=== PATIENT | female | born 1990 | race Caucasian/White ===

== ENCOUNTER 2020-08-08 16:00 | Inpatient (IN) | payer BC ==
[2020-08-08 11:13] VITALS: BMI 41.5
[2020-08-13] MEDS ORDERED: Bupivacaine 0.25% HCL 30 ML VIAL ONE (06:52)
[2020-08-13] MEDS ORDERED: Lidocaine 2% w/Epinephrine 1:200K 20 ML VIAL ONE (06:52)
[2020-08-13] MEDS ORDERED: Heparin 5,000 UNITS/ML VIAL ONE (06:55)
[2020-08-13] MEDS ORDERED: SUGAMMADEX SODIUM 200 MG/2 ML VIAL ONE (06:56)
[2020-08-13] MEDS ORDERED: Fentanyl 250 MCG/5 ML VIAL ONE (06:56)
[2020-08-13] MEDS ORDERED: PROPOFOL 20 ML ONE (06:56)
[2020-08-13] MEDS ORDERED: Lidocaine 1% w/Epinephrine 1:100K 20 ML VIAL ONE (06:58)
[2020-08-13] MEDS ORDERED: Midazolam HCl 2 mg/2 ml Vial ONE (07:24)
[2020-08-13] MEDS ORDERED: SUGAMMADEX SODIUM 500 MG/5 ML VIAL ONE (07:28)
--- NOTE | 2020-08-13 07:47 | HP ---
CHIEF COMPLAINT: Morbid obesity. HISTORY OF PRESENT ILLNESS: The patient is a 29-year-old female, who has been overweight for many years, attempted multiple weight loss programs without success. She is here for sleeve gastrectomy. PAST MEDICAL HISTORY: Significant for morbid obesity. PAST SURGICAL HISTORY: She has had a bunionectomy and a tonsillectomy. MEDICATIONS: 1. Benadryl. 2. Jade-Corning. 3. Depo-Medrol. ALLERGIES: NO KNOWN DRUG ALLERGIES. FAMILY HISTORY: Mother has cancer. SOCIAL HISTORY: No tobacco. Occasional alcohol. PHYSICAL EXAMINATION: VITAL SIGNS: Height 69, weight 291, body mass index 42.9, temperature is 98.4. GENERAL: Well-developed, well-nourished female, in no apparent distress. Good hair growth. No alopecia. HEENT: Pupils are equal, round, and reactive. Extraocular motor intact. Pharynx clear. Good dentition. NECK: Supple. No thyroid masses. No carotid bruits. LUNGS: Clear. HEART: Regular rate and rhythm. BREASTS: There are no palpable breast masses. LYMPHATIC: No lymphadenopathy. ABDOMEN: Soft, nondistended, nontender. No masses or hernias. BACK: No spinal tenderness or deformity. EXTREMITIES: Good pulses. No pedal edema. ASSESSMENT: Morbid obesity. PLAN: Laparoscopic sleeve gastrectomy. CONSENT: I have discussed planned procedure as well as risk of bleeding, infection, injury to the esophagus, bleeding loops of bowel, need to open, leakage from staple line. She understands and gives informed consent. Job ID: [id number]
[2020-08-13] MEDS ORDERED: Promethazine HCl 25 MG/ML VIAL SLOW IVP PRN (08:23)
[2020-08-13] MEDS ORDERED: Promethazine HCl 25 MG/ML VIAL IM PRN ×2 (08:23→09:04)
[2020-08-13] MEDS ORDERED: Meperidine HCl/PF 25 MG/ML VIAL SLOW IVP PRN (08:23)
[2020-08-13] MEDS ORDERED: Ondansetron HCl/PF 4 MG/2 ML Vial IVP PRN (08:23)
[2020-08-13] MEDS ORDERED: Dextrose 50% Abboject 50 ML SYRINGE SLOW IVP PRN (08:44)
[2020-08-13] MEDS ORDERED: hydrALAZINE 20 MG/ML VIAL SLOW IVP PRN (08:44)
[2020-08-13] MEDS ORDERED: diphenhydrAMINE 50 MG/ML VIAL IVP PRN ×2 (08:44→09:04)
[2020-08-13] MEDS ORDERED: Hydrocodone-Acetamin 15 ML UDCUP PO PRN (08:44)
[2020-08-13] MEDS ORDERED: Dextrose 5% in Water 1,000 ML IV PRN (08:44)
[2020-08-13] MEDS ORDERED: D5 1/2 NS w/20 mEq KCL 1,000 ML ONE (08:51)
[2020-08-13] MEDS ORDERED: Sodium Chloride 0.9% (PF) 10 ML VIAL FS PRN (09:00)
[2020-08-13] MEDS ORDERED: Promethazine HCl 25 MG/ML VIAL ONE (09:00)
--- NOTE | 2020-08-13 09:03 | OP ---
DATE OF PROCEDURE: 08/13/2020 PREOPERATIVE DIAGNOSIS: Morbid obesity. PROCEDURE PERFORMED: Laparoscopic sleeve gastrectomy with esophagogastroscopy. INDICATIONS: This is a 29-year-old female, morbidly obese, who has attempted multiple weight loss programs without success. FINDINGS: A 38-Welsh bougie was used. DESCRIPTION OF PROCEDURE: After informed consent was obtained, the patient was taken to the operating room, given general endotracheal anesthesia, placed in the supine position. Abdomen was prepped and draped in usual fashion. Local anesthesia was infiltrated subcutaneously and deep and a 12-mm incision was performed approximately 8 inches below the xiphoid, slight to the left. Veress needle inserted. Drop test performed. Pneumoperitoneum was created to a volume of 2 L of carbon dioxide. Utilizing a bladeless 12-mm trocar and 0-degree laparoscope, direct visual entry into the abdominal cavity was performed. Pneumoperitoneum was created to a pressure of 15 mmHg and the patient placed in steep reverse Trendelenburg position. Tara liver retractor inserted. Left lobe of liver retracted superiorly. Pylorus identified. A 12-mm port placed in the right beneath it and two 12's were placed left subcostal. The omentum was taken off the greater curvature 5 cm from the pylorus utilizing the LigaSure. Short gastrics divided with LigaSure and left crura defined with LigaSure. A 38-Welsh bougie inserted, directed into the antrum. The linear 60-mm green load stapler loaded with securing strips was used to divide the antrum to the bougie, gold load along the bougie and a series of blues to the angle of His. Intraoperative endoscopy was performed. The video endoscope was inserted under direct vision, advanced into the sleeve. The staple line inspected. There was no bleeding. Staple line then tested by inflating the new stomach with pressurized air under water. There was no air leak. Stomach decompressed. Scope removed. The remnant stomach removed from the abdomen through left lateral port site. The fascia closed with 0 Vicryl suture in the GraNee needle. Hemostasis was assured. Trocars and retractors removed under direct vision. The skin closed with interrupted 4-0 Rapide. Dermabond applied. The patient tolerated the procedure well, transferred to Recovery in good condition. Sponge and needle count verified correct x2. Job ID: [id number]
[2020-08-13] MEDS ORDERED: diphenhydrAMINE 25 MG CAP PO PRN (09:04)
[2020-08-13] MEDS ORDERED: HYDROmorphone 10 mg/100 ml CADD IVPB PRN (09:04)
[2020-08-13] MEDS ORDERED: Meperidine HCl/PF 25 MG/ML VIAL ONE (09:04)
[2020-08-13] MEDS ORDERED: diphenhydrAMINE 50 MG/ML VIAL IM PRN (09:04)
[2020-08-13] MEDS ORDERED: Ondansetron PF 4 MG/2 ML Vial IVP PRN (09:04)
[2020-08-13] MEDS ORDERED: Naloxone HCl 0.4 mg/ml Vial IV PRN (09:04)
[2020-08-13] MEDS ORDERED: Communication Order-Pharmacy FS SCH (09:15)
[2020-08-13] MEDS ORDERED: Fentanyl 100 MCG/2 ML VIAL ONE ×2 (09:35→09:57)
[2020-08-13] MEDS: D5 1/2 NS w/20 mEq KCL 1,000 ML IV SCH ×3 (12:46→21:55)
[2020-08-13] MEDS: Promethazine HCl 25 MG/ML VIAL IM PRN ×2 (12:46→22:19)
[2020-08-13] MEDS: Ketorolac Tromethamine 30 MG/ML VIAL IVP SCH ×2 (12:46→17:51)
[2020-08-13] MEDS: Pantoprazole 40 MG VIAL IVP SCH (12:57)
[2020-08-13] MEDS ORDERED: PROPOFOL 200 MG/20 ML VIAL ONE (14:26)
[2020-08-13] MEDS ORDERED: Ketorolac Tromethamine 30 MG/ML VIAL ONE (14:26)
[2020-08-13] MEDS ORDERED: Dexamethasone 20 MG/5 ML VIAL ONE (14:26)
[2020-08-13] MEDS ORDERED: Metoclopramide HCl 10 MG/2 ML VIAL ONE (14:26)
[2020-08-13] MEDS ORDERED: Glycopyrrolate 0.2 MG/ML 5 ML SYRINGE ONE (14:26)
[2020-08-13] MEDS ORDERED: Ondansetron PF 4 MG/2 ML Vial ONE (14:26)
[2020-08-13] MEDS ORDERED: ePHEDrine 50 MG/ML VIAL ONE (14:26)
[2020-08-13] MEDS ORDERED: Lidocaine 1% PF 5 ML VIAL ONE (14:26)
[2020-08-13] MEDS: CEFAZOLIN 2 GM in Premix Bag 1 BAG IVPB SCH ×2 (15:55→21:54)
[2020-08-13] MEDS: Ondansetron PF 4 MG/2 ML Vial IVP PRN (18:00)
[2020-08-14] MEDS: Ketorolac Tromethamine 30 MG/ML VIAL IVP SCH ×3 (00:23→12:59)
[2020-08-14] MEDS: D5 1/2 NS w/20 mEq KCL 1,000 ML IV SCH (05:43)
[2020-08-14] MEDS: Ondansetron PF 4 MG/2 ML Vial IVP PRN ×2 (05:45→13:06)
[2020-08-14] MEDS ORDERED: Enoxaparin Sodium 40 MG/0.4 ML SYRINGE SC SCH ×2 (06:00→09:00)
[2020-08-14 06:31] LABS: #Neutrophils 9.8 thou/uL (1.40-6.50); %Eosinophils 0.1 % (0.0-10.0); %Lymphocytes 8.6 % (21.0-51.0); %Monocytes 8.4 % (0.0-10.0); %Neutrophils 82.8 % (42.0-75.0); Hemoglobin 12.6 g/dL (12.0-16.0); Mean Corpuscular HGB CONC 32.8 g/dL (32.0-36.0); Mean Corpuscular Hemoglobin 29.1 pg (27.0-31.0); Mean Corpuscular Volume 88.7 fL (78.0-98.0); Mean Platelet Volume 10.4 fL (7.4-10.4); Platelet Count 173 thou/uL (130-400); RBC Distribution Width 12.1 % (11.5-14.5); Red Blood Cell (RBC) Count 4.33 mill/uL (4.20-5.40); White Blood Cell (WBC) Count 11.9 thou/uL (4.8-10.8)
[2020-08-14 06:56] LABS: Anion Gap 15 mmol/L (10-20); BUN (Urea Nitrogen) 5 mg/dL (7.0-18.7); Calc. Creatinine Clearance 291 mL/min (70-130); Calcium 8.8 mg/dL (7.8-10.44); Carbon Dioxide 19 mmol/L (22-29); Chloride 107 mmol/L (98-107); Estimated GFR-MDRD Greater than 90; Glucose 121 mg/dL (70-105); Sodium 137 mmol/L (136-145)
[2020-08-14] MEDS: Pantoprazole 40 MG VIAL IVP SCH (08:51)
[2020-08-14 15:02] VITALS: BP 124/86; TEMP 98
--- NOTE | 2020-08-15 07:57 | DIS ---
DATE OF ADMISSION: 08/13/2020 DATE OF DISCHARGE: 08/14/2020 DISCHARGE DIAGNOSIS: Morbid obesity. PROCEDURES DURING ADMISSION: Laparoscopic sleeve gastrectomy, intraoperative esophagogastroscopy. HOSPITAL COURSE: The patient was admitted, taken to the operating room. She underwent sleeve gastrectomy. Postoperatively, she has done well. She is tolerating liquids well. Pain is controlled on p.o. medications. Discharged home on hydrocodone and Zofran. Follow up with me in 2 weeks. Job ID: [id number]
== END 2020-08-14 16:10 | disposition home or self-care (01) | DRG 621 ==
LOC: SURG A 08-13 05:57
PROVIDERS: ADMIT Surgery; ATTEND Surgery
PROC: 0DB64Z3 Excision of Stomach, Percutaneous Endoscopic Approach, Vertical (ICD-10-PCS; principal; 2020-08-13)
PROC: 0DJ08ZZ Inspection of Upper Intestinal Tract, Via Natural or Artificial Opening Endoscopic (ICD-10-PCS; 2020-08-13)
DX: E66.01 Morbid (severe) obesity due to excess calories (principal); Z20.828 Contact with and (suspected) exposure to other viral communicable diseases; Z68.41 Body mass index [BMI] 40.0-44.9, adult; Z79.899 Other long term (current) drug therapy
CPT/HCPCS: 36415; 80048; 85025; 88307; 88312; C9113; J0690; J1100; J1644; J1650; J1885; J2175; J2250; J2405; J2550; J2704; J2765; J3010; J3480; J3490; S0020